=== PATIENT | male | born 1945 | race Caucasian/White ===

== ENCOUNTER 2017-07-11 12:46 | Outpatient (CLI) | payer MEDICARE, OTHER ==
--- NOTE | 2017-07-29 07:05 | PFT ---
PATIENT HISTORY: HEIGHT: 65 INCHES WEIGHT:159 POUNDS SMOKER: NO HOW LONG: PACKS PER DAY: PRODUCTIVE COUGH: LUNG DISEASE: PHYSICIAN INTERPRETATION FINAL REPORT: FEV1 is normal, FVC is normal, Mid flows are normal. IMPRESSION: Overall, this is a normal study in spite of some issues with testing Flight Software Test Engineer: SEBSATIÁN Funeral Driver: SEBASTIÁN SANCHEZ
== END 2017-07-11 12:47 | disposition home or self-care (01) ==
LOC: CP 12:46
PROVIDERS: ATTEND Family Medicine
DX: R06.02 Shortness of breath (principal); R53.83 Other fatigue
CPT/HCPCS: 94010

== ENCOUNTER 2018-11-13 15:41 | Outpatient (CLI) | payer MEDICARE ==
[2018-11-13 17:10] LABS: Hemoglobin 15.5 g/dL (14.0-18.0); Mean Corpuscular HGB CONC 33.6 g/dL (32.0-36.0); Mean Corpuscular Hemoglobin 32.2 pg (27.0-31.0); Mean Corpuscular Volume 95.8 fL (78.0-98.0); Mean Platelet Volume 8.1 fL (7.4-10.4); Platelet Count 214 thou/uL (130-400); RBC Distribution Width 12.4 % (11.5-14.5); Red Blood Cell (RBC) Count 4.82 mill/uL (4.70-6.10); White Blood Cell (WBC) Count 7.7 thou/uL (4.8-10.8)
[2018-11-13 17:16] LABS: PTT 32.5 SEC (22.9-36.1); Prothrombin Time 13.6 SEC (12.0-14.7)
[2018-11-13 17:17] LABS: Bilirubin Negative (Negative); Blood, Urine Negative (Negative); Clarity CLEAR (Clear); Glucose, Urine (Dipstick) Negative (Negative); Leukocyte Negative (Negative); Nitrite Negative (Negative); Protein, Urine (Dipstick) Negative (Neg-Trace); Specific Gravity, Urine 1.027 (1.002-1.036); pH, Urine 6.5 (5.0-9.0)
[2018-11-13 17:20] LABS: Bacteria/HPF None Seen HPF (None Seen); Hyaline Casts/LPF 0-3 HYALINE CAST LPF (0-3 Hyaline); RBC/HPF 0-3 HPF (0-3); Squamous Epithelial None Seen HPF (0-3); WBC/HPF 0-3 HPF (0-3)
[2018-11-13 17:32] LABS: Anion Gap 11 mmol/L (10-20); BUN (Urea Nitrogen) 18 mg/dL (8.4-25.7); Calc. Creatinine Clearance 0 mL/min (70-130); Calcium 9.4 mg/dL (7.8-10.44); Carbon Dioxide 26 mmol/L (23-31); Chloride 105 mmol/L (98-107); Estimated GFR-MDRD 79; Glucose 116 mg/dL (83-110); Sodium 138 mmol/L (136-145)
--- NOTE | 2018-11-13 21:32 | EKG ---
Test Reason : Blood Pressure : / mmHG Vent. Rate : 062 BPM Atrial Rate : 062 BPM P-R Int : 134 ms QRS Dur : 082 ms QT Int : 406 ms P-R-T Axes : 057 057 056 degrees QTc Int : 412 ms Normal sinus rhythm Normal ECG When compared with ECG of 06-DEC-2014 10:47, No significant change was found Confirmed by JUNIE FAULKNER, SShahla ([id number]) on 11/13/2018 9:32:36 PM Referred By: MICHAEL Confirmed By:DR. Ottoniel ZAMAN MD
== END 2018-11-13 15:42 | disposition home or self-care (01) ==
LOC: LABBT 15:41
PROVIDERS: ATTEND Urology
DX: Z01.818 Encounter for other preprocedural examination (principal); N40.1 Benign prostatic hyperplasia with lower urinary tract symptoms; R39.12 Poor urinary stream; R35.0 Frequency of micturition
CPT/HCPCS: 80048; 81001; 85027; 85610; 85730; 87086; 93005; 93010

== ENCOUNTER 2018-11-20 06:00 | Observation (INO) | payer MEDICARE ==
[2018-11-13 15:52] VITALS: BMI 25.7
[2018-11-20] MEDS ORDERED: Levofloxacin 500 mg/D5W 100 ml Premix Bag ONE (06:39)
[2018-11-20] MEDS ORDERED: B & O ONE (07:05)
[2018-11-20] MEDS ORDERED: Scopolamine 1.5 mg/72 hour Patch ONE (07:06)
[2018-11-20] MEDS ORDERED: Fentanyl 250 MCG/5 ML VIAL ONE (07:17)
[2018-11-20] MEDS ORDERED: Hyoscyamine Sulfate SL 0.125 mg Tablet SL PRN (09:00)
[2018-11-20] MEDS ORDERED: Mag-Al 1200 mg/1200 mg/30 ML UDCUP PO PRN (09:00)
[2018-11-20] MEDS ORDERED: Acetaminophen 500 MG TAB PO PRN (09:00)
[2018-11-20] MEDS ORDERED: Ondansetron PF 4 MG/2 ML Vial IVP PRN (09:00)
[2018-11-20] MEDS ORDERED: Oxybutynin 5 MG TAB PO PRN (09:00)
[2018-11-20] MEDS ORDERED: Phenazopyridine HCl 97.5 MG TABLET PO PRN (09:00)
[2018-11-20] MEDS ORDERED: diphenhydrAMINE 25 MG CAP PO PRN (09:00)
[2018-11-20] MEDS ORDERED: Bisacodyl 10 MG SUPP PR PRN (09:00)
[2018-11-20] MEDS ORDERED: hydrALAZINE 20 MG/ML VIAL SLOW IVP PRN (09:00)
[2018-11-20] MEDS ORDERED: Morphine 2 MG/ML SYRINGE SLOW IVP PRN (09:00)
[2018-11-20] MEDS ORDERED: traMADol HCl 50 MG TAB PO PRN (09:03)
[2018-11-20] MEDS ORDERED: Meperidine HCl/PF 25 MG/ML VIAL ONE (09:37)
[2018-11-20] MEDS ORDERED: Fentanyl 100 MCG/2 ML VIAL ONE (10:12)
[2018-11-20] MEDS ORDERED: Promethazine HCl 25 MG/ML VIAL ONE (10:54)
[2018-11-20] MEDS: Docusate 100 MG CAP PO SCH ×2 (12:34→20:50)
--- NOTE | 2018-11-20 12:34 | OP ---
DATE OF PROCEDURE: 11/20/2018 SERVICE: Urology. PREOPERATIVE DIAGNOSIS: Benign prostatic hyperplasia with lower urinary symptoms. POSTOPERATIVE DIAGNOSIS: Benign prostatic hyperplasia with lower urinary symptoms. PROCEDURE PERFORMED: Transurethral vaporization of prostate. INDICATION FOR PROCEDURE: Mr. Polk is a 73-year-old white male, who came to see me for significant urinary complaints. He has problems with both urgency, frequency, and weak stream and obstruction. His cystoscopy does demonstrate obstruction with a weak uroflow as such we had recommended transurethral vaporization of the prostate to at least alleviate the obstructive symptoms with hope that the irritative symptoms will also subside. Risks and benefits of the surgery were discussed and he has agreed to proceed forward. DESCRIPTION OF PROCEDURE: After identification of armband and verification of consent, the patient was brought back to the operating room, where he underwent general anesthesia with an LMA. He was placed in dorsal lithotomy position and prepped and draped in the usual sterile fashion. After appropriate time-out, a lubricated 26-Indian resectoscope sheath with visual obturator was inserted with ease and through the urethra into the bladder. The visual obturator was switched out for the bipolar plasma button for vaporization. Both ureters were identified well away from the bladder neck. Vaporization was started out just inside the bladder neck and vaporized up to the verumontanum circumferentially until the prostate was completely and wide open. Vaporization was taken close to but not up to the capsule to avoid any kind of injury of the neural and vascular structures outside the prostate. The bladder neck was incised at 5 and 7 o'clock to allow for bladder neck relaxing incisions which significantly opened up the bladder neck. Upon completion the prostate and bladder neck were wide open with no evidence of residual obstruction. Meticulous hemostasis was performed with the coag function and once completely dry, the irrigation was turned off to inspect for any additional bleeding and none was encountered. The bladder was left full and the resectoscope removed. A 22-Indian 3-way [place] catheter with 30 mL of sterile water was instilled into the balloon after insertion with clear drainage. CBI was initiated on a slow drip. A 16-A B and O suppository was placed in the patient's rectum and a StatLock affixed to the catheter. The patient was then taken out of positioning, awakened, taken to PACU for recovery in stable condition. COMPLICATIONS: None. ESTIMATED BLOOD LOSS: Minimal. RETAINED TUBES AND DRAINS: A 22-Indian 3-way [place]a catheter on slow CBI. SPECIMENS: None. DISPOSITION: The patient will be kept in the hospital overnight and we will perform a void trial tomorrow and the patient can be discharged if everything goes smoothly. Job ID: [id number]
[2018-11-20] MEDS: Famotidine/PF 20 mg/2ml Vial SLOW IVP SCH ×2 (12:35→20:50)
[2018-11-20] MEDS ORDERED: diphenhydrAMINE 50 MG/ML VIAL ONE (15:18)
[2018-11-20] MEDS ORDERED: Rocuronium Bromide 10 MG/ML (10ML VIAL) ONE (15:18)
[2018-11-20] MEDS ORDERED: Lidocaine 1% PF 5 ML VIAL ONE (15:18)
[2018-11-20] MEDS ORDERED: PROPOFOL 200 MG/20 ML VIAL ONE (15:18)
[2018-11-20] MEDS ORDERED: Dexamethasone 20 MG/5 ML VIAL ONE (15:18)
[2018-11-20] MEDS ORDERED: Ondansetron PF 4 MG/2 ML Vial ONE (15:18)
[2018-11-20] MEDS ORDERED: Glycopyrrolate 0.2 MG/ML 5 ML SYRINGE ONE (15:18)
[2018-11-20] MEDS ORDERED: PHENYLEPHRINE-NS 100 MCG/ML 10 ML SYRINGE ONE (15:18)
[2018-11-20] MEDS ORDERED: TRIAZOLAM PO SCH (21:00)
[2018-11-21] MEDS ORDERED: Levothyroxine Sodium 75 MCG TAB PO SCH (06:00)
[2018-11-21 08:14] LABS: #Eosinphils 0.1 thou/uL (0.0-0.7); #Lymphocytes 1.3 thou/uL (1.20-3.40); #Monocytes 1.2 thou/uL (0.11-0.59); #Neutrophils 9.3 thou/uL (1.40-6.50); %Basophils 0.2 % (0.0-1.0); %Eosinophils 0.6 % (0.0-10.0); %Lymphocytes 10.9 % (21.0-51.0); %Monocytes 9.8 % (0.0-10.0); %Neutrophils 78.4 % (42.0-75.0); Hemoglobin 14.1 g/dL (14.0-18.0); Mean Corpuscular HGB CONC 33.5 g/dL (32.0-36.0); Mean Corpuscular Hemoglobin 31.6 pg (27.0-31.0); Mean Corpuscular Volume 94.3 fL (78.0-98.0); Mean Platelet Volume 8.5 fL (7.4-10.4); Platelet Count 180 thou/uL (130-400); RBC Distribution Width 12.5 % (11.5-14.5); Red Blood Cell (RBC) Count 4.46 mill/uL (4.70-6.10); White Blood Cell (WBC) Count 11.9 thou/uL (4.8-10.8)
[2018-11-21 08:30] LABS: Anion Gap 12 mmol/L (10-20); BUN (Urea Nitrogen) 23 mg/dL (8.4-25.7); Calc. Creatinine Clearance 61 mL/min (70-130); Calcium 8.8 mg/dL (7.8-10.44); Carbon Dioxide 24 mmol/L (23-31); Chloride 101 mmol/L (98-107); Estimated GFR-MDRD 70; Glucose 103 mg/dL (83-110); Potassium 3.9 mmol/L (3.5-5.1); Sodium 133 mmol/L (136-145)
[2018-11-21] MEDS: Docusate 100 MG CAP PO SCH (08:59)
[2018-11-21] MEDS: Famotidine/PF 20 mg/2ml Vial SLOW IVP SCH (08:59)
[2018-11-21 11:51] VITALS: BP 124/76; TEMP 98
== END 2018-11-21 15:26 | disposition home or self-care (01) ==
LOC: SDC 06:00 → SURG A 12:07
PROVIDERS: ADMIT Urology; ATTEND Urology
PROC: 0VT08ZZ Resection of Prostate, Via Natural or Artificial Opening Endoscopic (ICD-10-PCS; principal; 2018-11-20)
DX: N40.1 Benign prostatic hyperplasia with lower urinary tract symptoms (principal); N13.8 Other obstructive and reflux uropathy; R35.0 Frequency of micturition; R39.15 Urgency of urination; R39.12 Poor urinary stream; E89.0 Postprocedural hypothyroidism; K21.9 Gastro-esophageal reflux disease without esophagitis; M19.90 Unspecified osteoarthritis, unspecified site; E78.5 Hyperlipidemia, unspecified; Z88.5 Allergy status to narcotic agent; Z91.018 Allergy to other foods; Z91.011 Allergy to milk products; Z91.038 Other insect allergy status; Z79.899 Other long term (current) drug therapy
CPT/HCPCS: 52601; 80048; 85025; 96374; 96376; G0378; 36415; J1100; J1200; J1956; J2001; J2175; J2405; J2550; J2704; J3010; S0028

== ENCOUNTER 2019-01-14 08:13 | Outpatient (CLI) | payer MEDICARE ==
--- NOTE | 2019-01-14 12:27 | CT ---
CTA OF THE CHEST AND ABDOMEN AND PELVIS AND BILATERAL EXTREMITIES FOR RUNOFF: COMPARISON: 01/16/2017. HISTORY: Ascending thoracic aortic aneurysm. TECHNIQUE: Multiple contiguous axial images were obtained in a CTA of the chest, abdomen, pelvis, and bilateral lower extremities for runoff. Three-D sagittal and coronal MIP reformats were performed. FINDINGS: The heart is normal in size. The hilar or mediastinal lymphadenopathy are seen. No focal infiltrates are seen in the lungs. No suspicious pulmonary nodules are seen. No pneumothor ax or pleural effusion are seen. There is a 2.0 cm cyst in the right kidney. The liver, gallbladder, left kidney, adrenal glands, spl een, and pancreas are unremarkable. No free air, free fluid, or stranding changes are seen in the ab domen or pelvis. Scattered diverticula are seen in the colon. The small bowel and appendix are unremarkable. No abdo billie or pelvic lymphadenopathy are seen. Degenerative changes ____ to the spine are seen. There is stable enlargement of the ascending aorta measuring 4.0 cm in greatest dimension. The aorti c root measures 3.5 cm in greatest dimension. No aneurysmal enlargement of the descending thoracic a hanane is seen. The abdominal aorta is normal in caliber without evidence of dissection or aneurysmal dilatation. Th e celiac trunk, SMA, and KALINA are patent. A single renal artery is seen on each side without signific ant atherosclerotic disease. Minimal disease is seen in the right common iliac artery. Minimal disease is seen in the internal an d external iliac arteries. No significant atherosclerotic disease is seen in either profunda femoral artery or superficial femor al artery. There is bilateral 3-vessel runoff down to the level of the ankle. IMPRESSION: 1. Stable thoracic ascending aortic aneurysm. 2. Normal abdominal aorta and bilateral lower extremities. 3. Right renal cyst. 4. Diverticulosis. POS: [facility]
== END 2019-01-14 08:14 | disposition home or self-care (01) ==
LOC: BICCT 08:13
PROVIDERS: ATTEND Internal Medicine Cardiovascular Disease
DX: I71.2 Thoracic aortic aneurysm, without rupture (principal); N28.1 Cyst of kidney, acquired; K57.30 Diverticulosis of large intestine without perforation or abscess without bleeding
CPT/HCPCS: 75635; 82565

== ENCOUNTER 2023-12-17 12:02 | Outpatient (CLI) | payer MEDICARE | END 2023-12-17 12:03 | disposition home or self-care (01) | LOC: BICRAD 12:02 | PROVIDERS: ATTEND Family Medicine | DX: M54.2 Cervicalgia (principal); M47.812 Spondylosis without myelopathy or radiculopathy, cervical region | CPT/HCPCS: 72040 ==

== ENCOUNTER 2024-02-20 08:55 | Outpatient (CLI) | payer MEDICARE | END 2024-02-20 08:56 | disposition home or self-care (01) | LOC: BICMRI 08:55 | PROVIDERS: ATTEND Family Medicine | DX: M54.2 Cervicalgia (principal); R26.89 Other abnormalities of gait and mobility; I67.82 Cerebral ischemia; M50.31 Other cervical disc degeneration, high cervical region; M50.322 Other cervical disc degeneration at C5-C6 level; M50.323 Other cervical disc degeneration at C6-C7 level; M48.02 Spinal stenosis, cervical region; M48.03 Spinal stenosis, cervicothoracic region | CPT/HCPCS: 70470; 72141; 82565 ==

== ENCOUNTER 2024-04-01 10:46 | Outpatient (CLI) | payer MEDICARE ==
[~2024-04-01 10:46] MED LIST: Magnevist 469MG/ML 20 ML VIAL ONE
== END 2024-04-01 10:47 | disposition home or self-care (01) ==
LOC: MRI 10:46
PROVIDERS: ATTEND Neurological Surgery
DX: G50.8 Other disorders of trigeminal nerve (principal); R26.89 Other abnormalities of gait and mobility; I67.89 Other cerebrovascular disease; G31.9 Degenerative disease of nervous system, unspecified
CPT/HCPCS: 70553; 76377; A9579

== ENCOUNTER → 2024-07-08 | Outpatient (CLI) | payer MEDICARE | LOC: BICRAD 09:38 | PROVIDERS: ATTEND Family Medicine | DX: Z01.818 Encounter for other preprocedural examination (principal) | CPT/HCPCS: 71046 ==

== ENCOUNTER 2024-07-15 07:59 | Outpatient (CLI) | payer MEDICARE | END 2024-07-15 08:00 | disposition home or self-care (01) | LOC: CT 07:59 | PROVIDERS: ATTEND Internal Medicine Cardiovascular Disease | DX: I35.1 Nonrheumatic aortic (valve) insufficiency (principal); I77.810 Thoracic aortic ectasia; I70.0 Atherosclerosis of aorta | CPT/HCPCS: 71275 ==

== ENCOUNTER 2024-07-15 10:30 | Inpatient (IN) | payer MEDICARE ==
[2024-07-21] MEDS ORDERED: Thrombin 5000 UNITS/5 ML VIAL ONE (06:08)
[2024-07-21] MEDS ORDERED: Vancomycin 1 GM VIAL ONE (06:08)
[2024-07-21] MEDS ORDERED: Rocuronium Bromide 10 MG/ML (10ML VIAL) ONE (06:21)
[2024-07-21] MEDS ORDERED: Lidocaine 1% PF 5 ML VIAL ONE (06:21)
[2024-07-21] MEDS ORDERED: PROPOFOL 20 ML ONE (06:21)
[2024-07-21] MEDS ORDERED: Fentanyl 250 MCG/5 ML VIAL ONE (06:21)
[2024-07-21] MEDS ORDERED: Ondansetron PF 4 MG/2 ML Vial IVP PRN (06:37)
[2024-07-21] MEDS ORDERED: Promethazine HCl 25 MG/ML VIAL IM PRN ×2 (06:37→11:08)
[2024-07-21] MEDS ORDERED: HYDROcodone/Acetaminophen 10/325 mg Tablet PO PRN (06:37)
[2024-07-21] MEDS ORDERED: Acetaminophen 325 MG TAB PO PRN (06:37)
[2024-07-21] MEDS ORDERED: Mag-Al 1200 mg/1200 mg/30 ML UDCUP PO PRN (06:37)
[2024-07-21] MEDS ORDERED: HYDROcodone/Acetaminophen 7.5/325 mg Tablet PO PRN (06:37)
[2024-07-21] MEDS ORDERED: Morphine 2 MG/ML VIAL SLOW IVP PRN (06:37)
[2024-07-21] MEDS ORDERED: Prochlorperazine 10 MG/2 ML VIAL IM PRN (06:37)
[2024-07-21] MEDS ORDERED: Milk Of Magnesia 30 ML UDCUP PO PRN (06:37)
[2024-07-21] MEDS ORDERED: diphenhydrAMINE 50 MG/ML VIAL IVP PRN (06:37)
[2024-07-21] MEDS ORDERED: CEFAZOLIN 2 GM VIAL ONE ×2 (06:37→14:40)
[2024-07-21] MEDS ORDERED: Scopolamine 1 mg/72 hour Patch ONE (06:40)
[2024-07-21] MEDS ORDERED: tiZANidine HCl 4 MG TAB PO PRN (06:42)
[2024-07-21] MEDS ORDERED: Famotidine/PF 20 mg/2ml Vial ONE (06:59)
[2024-07-21] MEDS ORDERED: Sterile Water 10 ML ONE (07:08)
[2024-07-21] MEDS ORDERED: PHENYLEPHRINE-NS 100 MCG/ML 10 ML SYRINGE ONE (07:42)
[2024-07-21] MEDS ORDERED: Dexamethasone 20 MG/5 ML VIAL ONE (07:57)
[2024-07-21] MEDS ORDERED: ePHEDrine Sulfate 50 MG/10 ML VIAL ONE (08:10)
[2024-07-21] MEDS ORDERED: Vecuronium 10 MG VIAL ONE (08:58)
[2024-07-21] MEDS ORDERED: Metoclopramide HCl 10 MG (2 mL) VIAL ONE (09:41)
[2024-07-21] MEDS ORDERED: Ondansetron HCl/PF 4 MG/2 ML Vial IVP PRN (11:08)
[2024-07-21] MEDS ORDERED: Ondansetron PF 4 MG/2 ML Vial ONE ×2 (11:08→16:55)
[2024-07-21] MEDS ORDERED: SUGAMMADEX SODIUM 200 MG/2 ML VIAL ONE (11:35)
[2024-07-21] MEDS ORDERED: Lidocaine 2% PF 5 ML VIAL ONE (11:54)
[2024-07-21] MEDS ORDERED: fentaNYL 50 mcg/mL 1 mL Vial ONE ×2 (12:32→13:34)
[2024-07-21] MEDS ORDERED: Sodium Chloride 0.9% 100 ML ONE (14:41)
[2024-07-21] MEDS: CEFAZOLIN 2 GM in Sodium Chloride 0.9% 100 ML IVPB SCH (14:50)
[2024-07-21 17:44] VITALS: BMI 25.7
[2024-07-21] MEDS: Pantoprazole DR 40 MG TAB PO SCH (18:26)
[2024-07-21] MEDS: Sodium Chloride 0.9% 1,000 ML IV SCH (18:27)
[2024-07-22] MEDS: Levothyroxine Sodium 75 MCG TAB PO SCH (05:42)
[2024-07-22] MEDS: Ezetimibe 10 MG TAB PO SCH (08:12)
[2024-07-22 13:14] VITALS: BP 158/66; TEMP 97.7
== END 2024-07-22 16:08 | disposition home or self-care (01) | DRG 473 ==
LOC: SURG A 07-21 05:52 → SURG B 07-21 17:03
PROVIDERS: ADMIT Neurological Surgery; ATTEND Neurological Surgery
PROC: 0RG2070 Fusion of 2 or more Cervical Vertebral Joints with Autologous Tissue Substitute, Anterior Approach, Anterior Column, Open Approach (ICD-10-PCS; principal; 2024-07-21)
PROC: 0RB30ZZ Excision of Cervical Vertebral Disc, Open Approach (ICD-10-PCS; 2024-07-21)
DX: M47.12 Other spondylosis with myelopathy, cervical region (principal); F41.9 Anxiety disorder, unspecified; N40.0 Benign prostatic hyperplasia without lower urinary tract symptoms; K21.9 Gastro-esophageal reflux disease without esophagitis; E78.5 Hyperlipidemia, unspecified; E03.9 Hypothyroidism, unspecified; Z91.038 Other insect allergy status; Z88.5 Allergy status to narcotic agent; Z91.018 Allergy to other foods; G56.00 Carpal tunnel syndrome, unspecified upper limb; Z98.42 Cataract extraction status, left eye; Z98.41 Cataract extraction status, right eye
CPT/HCPCS: A4314; C1713; J1100; J2405; J2704; J2765; J3010; J3370; J3490; J7030

== ENCOUNTER 2025-03-31 10:28 | Outpatient (CLI) | payer MEDICARE | END 2025-03-31 10:29 | disposition home or self-care (01) | LOC: BICRAD 10:28 | PROVIDERS: ATTEND Family Medicine | DX: M51.360 Other intervertebral disc degeneration, lumbar region with discogenic back pain only (principal); M25.511 Pain in right shoulder; M19.011 Primary osteoarthritis, right shoulder; M47.816 Spondylosis without myelopathy or radiculopathy, lumbar region; M41.9 Scoliosis, unspecified | CPT/HCPCS: 72100 ==

== ENCOUNTER 2025-07-01 11:00 | Outpatient (CLI) | payer MEDICARE | END 2025-07-01 11:01 | disposition home or self-care (01) | LOC: BICMAMMO 11:00 | PROVIDERS: ATTEND Family Medicine | DX: R93.7 Abnormal findings on diagnostic imaging of other parts of musculoskeletal system (principal); M81.0 Age-related osteoporosis without current pathological fracture | CPT/HCPCS: 77080 ==